=== PATIENT | female | born 1990 | race Two or more races ===

== ENCOUNTER 2022-04-04 02:19 | Emergency (ER) | payer OTHER ==
[~2022-04-04] VITALS: Ht 165.1 cm; Wt 54.4 kg
[2022-04-04] MEDS ORDERED: KETAMINE HCL 500 MG/10 ML INJ IM ONE ×2 (02:30→06:30)
[2022-04-04] MEDS ORDERED: IV NORMAL SALINE 1000 ML BAG IV ONE (02:30)
[2022-04-04 03:05] LABS: HEMATOCRIT 37.2 % (31.2-41.9); MEAN CORPUSCULAR HEMOGLOBIN 32.3 uug (24.7-32.8); MEAN CORPUSCULAR VOLUME 94.4 fL (75.5-95.3); PLATELET COUNT (AUTO) 242 K/uL (179-408)
[2022-04-04 03:22] LABS: ETHANOL 374 MG/DL (0-0)
[2022-04-04 03:31] LABS: CARBON DIOXIDE 24 mmol/L (21-32); CHLORIDE 100 mmol/L (98-107); CREATININE 0.7 mg/dL (0.6-1.3); GLUCOSE 101 mg/dL (74-106); UREA NITROGEN, BLOOD 9 mg/dL (7-18)
[2022-04-04 03:40] LABS: ALANINE AMINOTRANSFERASE 26 U/L (14-59); ALKALINE PHOSPHATASE 40 U/L (50-136); ASPARTATE AMINOTRANSFERASE 23 U/L (15-37); BILIRUBIN,DIRECT 0.1 mg/dL (0.0-0.2); BILIRUBIN,TOTAL 0.4 mg/dL (0.2-1.0); TOTAL PROTEIN, SERUM 7.3 g/dL (6.4-8.2)
[2022-04-04] MEDS ORDERED: LIDOCAINE 2%-EPI 1:100,000 20 ML VIAL ONE (03:42)
[2022-04-04] MEDS ORDERED: LIDOCAINE 1%-EPI 1:100,000 20 ML VIAL IJ ONE (03:45)
[2022-04-04] MEDS ORDERED: KETAMINE HCL 500 MG/10 ML INJ ONE (03:47)
--- NOTE | 2022-04-04 04:00 | NUR ---
given ketalar 200 mg IM via the left thigh .
--- NOTE | 2022-04-04 04:10 | NUR ---
assisted DR:OSMAN for left check (face ) suturing at b/s .
[2022-04-04] MEDS ORDERED: NEOMY/BACITRA/POLYMYXIN B OINT UD PACKET TP ONE (04:48)
[2022-04-04] MEDS ORDERED: MAGNESIUM SULFATE/D5W 100 ML ONE ×2 (05:02→05:04)
[2022-04-04] MEDS: MAGNESIUM SULFATE/D5W 100 ML IV SCH ×2 (05:06→05:54)
--- NOTE | 2022-04-04 06:00 | NUR ---
patient went to [facility] via [facility] .
--- NOTE | 2022-04-04 06:22 | NUR ---
escorted patient to the bathroom ,hand held assist. patient voided ,back to bed .
--- NOTE | 2022-04-04 06:30 | NUR ---
escorted patient to the bathroom patient voided ,escorted patient back to room patient refused to go back to bed called security and help patient back to her room .
--- NOTE | 2022-04-04 06:30 | NUR ---
hold ketalar as per MARK PHELAN and not to give it .
--- NOTE | 2022-04-04 08:45 | NUR ---
1st contact with patient: AOx4, walking to bathroom with steady gait, Dr Albert notified. Patient's ride is here in the waiting room per director security risk management Ryan.
--- NOTE | 2022-04-04 08:56 | NUR ---
No peripheral IV line seen on patient's arms. Patient said that she removed the line herself. Patient discharged to home in stable condition. Written and verbal after care instructions given to patient. Patient verbalized understanding and compliance of instructions but refused to sign the discharge papers. Stressed follow up with primary doctor or return to ER for worsening s/s.
== END 2022-04-04 09:02 | disposition home or self-care (01) ==
LOC: ER 02:39
DX: F10.129 Alcohol abuse with intoxication, unspecified (principal); Y90.8 Blood alcohol level of 240 mg/100 ml or more; S00.03XA Contusion of scalp, initial encounter; S01.412A Laceration without foreign body of left cheek and temporomandibular area, initial encounter; W07.XXXA Fall from chair, initial encounter; Y92.511 Restaurant or cafe as the place of occurrence of the external cause; R41.82 Altered mental status, unspecified; E87.6 Hypokalemia
CPT/HCPCS: 80076; 80048; 82962; 85025; 84484; 84702; 36415; 93005; 70450 ×2; 72125; 99285; 96361; 96365; 96372; 80320; 12011; J3490; J3475 ×2; J7040; A4663; G0480